=== PATIENT | female | born 1945 | race Caucasian/White ===

== ENCOUNTER → 2018-01-18 | Outpatient (CLI) | payer MEDICARE, OTHER | LOC: COL.VAS 12:21 | DX: M79.605 Pain in left leg (principal); R60.0 Localized edema ==

== ENCOUNTER → 2018-11-23 | Outpatient (CLI) | payer MEDICARE, OTHER | LOC: COL.VAS 14:32 | DX: Z13.6 Encounter for screening for cardiovascular disorders (principal); M79.89 Other specified soft tissue disorders ==

== ENCOUNTER → 2019-01-17 | Outpatient (CLI) | payer MEDICARE, OTHER | LOC: ZCOL.LAB 09:36 | DX: S81.811S Laceration without foreign body, right lower leg, sequela (principal) ==

== ENCOUNTER 2019-10-19 10:16 | Outpatient (CLI) | payer MEDICARE, OTHER ==
[2019-10-19] VITALS (8 sets, daily range): BP systolic 103–127; BP diastolic 60–79; PULSE 86–98; TEMP 98.4
[~2019-10-19] VITALS: Ht 160.1 cm; Wt 78.6 kg
[2019-10-19] MEDS ORDERED: ATIVAN 0.50.5 MG/TAB PO (12:55)
[2019-10-19] MEDS ORDERED: NORCO 325 MG-101 TAB PO (12:55)
[2019-10-19] MEDS ORDERED: K-DUR 10 MEQ T10 MEQ PO (12:55)
[2019-10-19] MEDS ORDERED: PRINIVIL10 MG PO (12:56)
[2019-10-19] MEDS ORDERED: INDERAL 20MG20 MG PO (12:56)
[2019-10-19] MEDS ORDERED: SYNTHROID0.075 MG/T PO (12:57)
[2019-10-19] MEDS ORDERED: ALDACTONE 25MG25 M1 PO (12:58)
[2019-10-19] MEDS ORDERED: NORVASC 5MG5 MG/TAB PO (12:59)
--- NOTE | 2019-10-19 13:44 | NUR ---
SEE MERGE DOCUMENTATION FOR MEDICATION ADMINISTRATION TIMES AND INTRA/POST PROCEDURE SEDATION ASSESSMENTS.
--- NOTE | 2019-10-19 14:45 | NUR ---
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
--- NOTE | 2019-10-19 15:15 | NUR ---
pt eating lunch, no c/o. Dr Guerrero into see pt
--- NOTE | 2019-10-19 16:00 | NUR ---
pt sat on side of bed, tolerated well, assisted to b/r in room to void, INT d'cd intact. daughter assisted in dressing pt. Reviewed discharge inst. with pt on care of site, shower and number to call for update on condition. pt states not having pain to back now, but is sore does state her right arm hurts, but it hurt before arrival. reviewed moderate sedation precautions also with pt and daughter.
--- NOTE | 2019-10-19 16:40 | NUR ---
pt discharged via w/c to car with daughter
== END 2019-10-19 16:45 | disposition home or self-care (01) ==
LOC: COL.RAD 10:16 → COL.CAR 11:45 → COL.RAD 16:45
DX: S32.010A Wedge compression fracture of first lumbar vertebra, initial encounter for closed fracture (principal); M48.061 Spinal stenosis, lumbar region without neurogenic claudication
CPT/HCPCS: C1713; J2250; J3010; J7120